=== PATIENT | male | born 1960 | race African-American/Black ===

== ENCOUNTER 2016-05-24 05:42 | Emergency (ER) | payer SELFPAY ==
[~2016-05-24] VITALS: Ht 190.5 cm; Wt 110.2 kg
[2016-05-24] MEDS ORDERED: REGLAN5 MG ORAL (06:19)
[2016-05-24] MEDS ORDERED: ZOFRAN4 M3 ORAL (06:19)
[2016-05-24] MEDS ORDERED: PROCHLORPERAZINE5 MG ORAL (06:19)
[2016-05-24] MEDS ORDERED: NORCO 10-325 T1 EACH ORAL (06:19)
[2016-05-24] MEDS ORDERED: CAFERGOT TABLE1 EACH PO (06:19)
[2016-05-24 06:30] VITALS: BP 166/87
[2016-05-24] MEDS ORDERED: DiphenhydrAMINE 50mg/ml Inj IVP ONE (06:45)
[2016-05-24] MEDS ORDERED: Metoclopramide 10mg/2ml Inj IVP ONE (06:45)
--- NOTE | 2016-05-24 06:48 | Emergency Room Report ---
History of Present Illness General Chief Complaint: Headache Source: Patient Present Illness HPI 55 YO M presents with migraine headache for 4-5 days, left eye stabbing pain associated with nausea. States having wire removed on lower jaw s/p distant mandible fx set off current migraine. Took zofran at home 45 min ago. Denies dizziness, focal extremity weakness, fever/chills, neck stiffness. Patient states migraines since 1987. Takes combination of meds including Semmes at home. Make specific request for "IM or sub-q hydromorphone" here as "what I always get." Never been here before. Refused IV reglan/tylenol/IVF combination. Allergies: Coded Allergies: KETOROLAC (Verified Allergy, Unknown, Shortness of Breath, 05/24/16) RIZATRIPTAN (Verified Allergy, Unknown, Rash, 05/24/16) Patient History Past Medical History: migraines Past Surgical History: none Pertinent Family History: none Social History: Denies: alcohol use, drug use, smoking Immunizations: UTD Reviewed Nursing Documentation: PMH: Agreed, PSxH: Agreed Review of Systems All Other Systems: negative except mentioned in HPI Physical Exam Vital Signs Date Time Temp Pulse Resp B/P Pulse Ox O2 Delivery O2 Flow Rate FiO2 05/24/16 06:14 98.2 69 18 166/87 98 Room Air Sp02 EP Interpretation: reviewed, abnormal General Appearance: normal inspection, well appearing, no apparent distress, alert Head: normocephalic, atraumatic Eyes: bilateral eye EOMI, bilateral eye PERRL ENT: normal ENT inspection, hearing grossly normal, normal voice Neck: normal inspection, full range of motion, supple, no bony tend Respiratory: normal inspection, lungs clear, normal breath sounds, no respiratory distress, no retraction, no wheezing Cardiovascular #1: regular rate, rhythm, no edema Gastrointestinal: normal inspection, normal bowel sounds, non tender, soft, no guarding, no hernia Genitourinary: no CVA tenderness Musculoskeletal: normal inspection, back normal, normal range of motion, Mirtha' s Sign negative Neurologic: normal inspection, alert, oriented x3, responsive, terminal operator III-XII nml as tested, motor strength/tone normal, speech normal Psychiatric: normal inspection, judgement/insight normal, mood/affect normal Skin: normal inspection, normal color, no rash Lymphatic: normal inspection Medical Decision Making Diagnostic Impression: Primary Impression: Headache Qualified Codes: R51 - Headache ER Course 55 YO M with headache VSS. Elevated BP likely d/t pain Afebrile. Low suspicion for SAH or meningitis given well appearance, absence of focal neuro deficits, absence of meningismus, normal vital signs, and duration and intensity of headache. Im dilaudid given Headache resolved Neuro exam serially negative for focal deficits Vitals stable on discharge F/up with known Neurologist Strong suspicion for narcotic seeking behavior DC home Last Vital Signs Date Time Temp Pulse Resp B/P Pulse Ox O2 Delivery O2 Flow Rate FiO2 05/24/16 06:14 98.2 69 18 166/87 98 Room Air Status: improved Disposition: HOME, SELF-CARE ELYSSA DUBON M.D. May 24, 2016 06:48
[2016-05-24 06:55] VITALS: BP 161/83
== END 2016-05-24 06:59 | disposition home or self-care (01) ==
LOC: EMR 06:55
DX: R51 Headache (principal)
CPT/HCPCS: 96372; 99283; J1170